=== PATIENT | female | born 1985 | race Caucasian/White ===

== ENCOUNTER → 2024-09-13 | Outpatient (CLI) | payer BC ==
[~2024-09-13] MED LIST: DOCU100 PO; Depo-Prove150 MG/11 IM; IBUP800 PO; OXYACE5T PO; Verotin-Gr Cap1 EACH PO; Zofran4 MG PO
== END ==
LOC: LAB 11:29 → LAB SHORT 11:29
DX: J02.9 Acute pharyngitis, unspecified (principal)
CPT/HCPCS: 87081